=== PATIENT | male | born 1960 | race Caucasian/White ===

== ENCOUNTER 2016-05-18 14:57 | Emergency (ER) | payer OTHER ==
[2016-05-18 15:22] VITALS: PULSE 68; TEMP 97.5
--- NOTE | 2016-05-18 15:27 | EDPHY ---
H & P Time Seen by Provider: 05/18/16 15:04 HPI/ROS: CHIEF COMPLAINT: Dizziness HISTORY OF PRESENT ILLNESS: This 55-year-old man had relatively rapid onset of dizziness at 1:30 p.m. today while he was [place] the [address]. He walked back to work and was feeling dizziness which he describes is like being in an earthquake. He had this sensation of motion even when he was not moving. He did not have lightheaded or near syncopal sensation. No chest pain headache or double vision. No neck pain or recent trauma. He said symptoms were better lying down closing his eyes. He walked back to the office but at work was unable to give a presentation due to dizziness, and was brought in for evaluation by EMS. Just prior to my evaluation he walked to the bathroom and back without ataxia; at the time of my evaluation his symptoms are much improved and in fact almost gone. REVIEW OF SYSTEMS: Eye: no change in vision ENT: no sore throat, no ear symptoms Cardiac: no chest pain or syncope Pulmonary: no cough or SOB Abdomen: no vomiting, diarrhea, abdominal pain Musculoskeletal: no back pain Skin: no rash Neuro: no headache Constitutional: no fever : no urinary symptoms A comprehensive 10 point review of systems is otherwise negative aside from elements mentioned in the history of present illness. PAST MEDICAL HISTORY: Pneumonia and left knee replacement Social history: Nonsmoker, and son in the room. General Appearance: Alert and conversant, cooperative. Eyes: No scleral icterus. ENT, Mouth: Normal mucous membranes. Normal tympanic membranes. Respiratory: Normal respiratory effort, breath sounds equal, lungs are clear to auscultation. Cardiovascular: Regular rate and rhythm. No carotid bruit. Gastrointestinal: Abdomen is soft and non tender. Neurological: Alert and oriented x3. Normally conversant. Face symmetric, normal movement and sensation in all extremities. Patient is ambulatory to the bathroom and back without ataxia, normal [id number] bilaterally, no pronator drift. Normal [id number] bilaterally. Extraocular motion is intact with some horizontal nystagmus looking to the right. Skin: Warm and dry, no rashes. Musculoskeletal: No peripheral edema and no joint swelling. Psychiatric: Not agitated. Emergency Department course/MDM: Patient presents with symptoms most likely peripheral vertigo in nature. Sensation of motion with some extinguishing component, better lying down with eyes closed. Has a normal neurologic exam. Does not have headache or neck pain. No neurologic deficits including during cerebellar testing in the emergency department. My suspicion for vertebral dissection or cerebellar stroke is low at this time, I do not think emergent imaging is required, discussed with patient and family who are in agreement. Smoking Status: Never smoked Constitutional: Initial Vital Signs Temperature (C) 36.4 C 05/18/16 15:05 Heart Rate 68 05/18/16 15:05 Respiratory Rate 18 05/18/16 15:05 Blood Pressure 139/87 H 05/18/16 15:05 O2 Sat (%) 98 05/18/16 15:05 O2 Delivery Mode Room Air Allergies/Adverse Reactions: No Known Allergies Allergy (Unverified 05/18/16 15:28) Home Medications: Medication Instructions Recorded Aspirin 05/18/16 Meclizine HCl [Meclizine HCl 25 mg 25 mg PO Q6 PRN #15 tab 05/18/16 (RX,OTC)] Medical Decision Making Differential Diagnosis: Differential diagnosis considered for dizziness including but not limited to peripheral and central causes of vertigo, orthostatic causes including dehydration, and blood loss. Departure - Departure Disposition: Home, Routine, Self-Care Clinical Impression: Vertigo Condition: Good Instructions: Vertigo (ED), Benign Paroxysmal Positional Vertigo (ED) Referrals: Felix Steel MD [Primary Care Provider] - As per Instructions Prescriptions: Meclizine HCl [Meclizine HCl 25 mg (RX,OTC)] 25 mg PO Q6 PRN #15 tab PRN Reason: Dizziness
[2016-05-18 15:44] VITALS: BP 126/86; RESP 16; O2SAT 95
== END 2016-05-18 15:44 | disposition home or self-care (01) ==
LOC: EDUNIT#
DX: R42 Dizziness and giddiness (principal); Z79.82 Long term (current) use of aspirin

== ENCOUNTER → 2017-03-14 | Outpatient (CLI) | payer OTHER | LOC: FIMAGING 13:00 | PROVIDERS: ATTEND Internal Medicine | DX: R05 Cough (principal); R50.9 Fever, unspecified ==